=== PATIENT | female | born 1990 ===

== ENCOUNTER 2020-06-23 06:50 | Day surgery (SDC) | payer OTHER ==
[~2020-06-23 06:50] MED LIST: BUDEO.25 IH; PROAIR HFA8.5 GM IH; ZYRTEC10 M3 PO
== END 2020-06-23 15:45 | disposition home or self-care (01) ==
LOC: CIR.AMB 06:50
PROVIDERS: ATTEND Obstetrics & Gynecology Gynecology
DX: N30.10 Interstitial cystitis (chronic) without hematuria (principal); Z20.828 Contact with and (suspected) exposure to other viral communicable diseases